=== PATIENT | female | born 1955 | race Caucasian/White ===

== ENCOUNTER 2020-07-18 08:27 | Outpatient (CLI) | payer BC ==
[~2020-07-18] VITALS: Ht 152.4 cm; Wt 93.7 kg
[2020-07-18 09:00] VITALS: BP 125/64; PULSE 64; TEMP 97.5
[2020-07-18] MEDS ORDERED: PREVACID 30MG30 M1 PO (14:35)
[2020-07-18] MEDS ORDERED: IMODIUM 2MG CAPS2 MG PO (14:35)
[2020-07-18] MEDS ORDERED: SUDAFED60 MG PO (14:36)
[2020-07-18] MEDS ORDERED: CLARITIN 1010 MG/TAB PO (14:36)
[2020-07-18] MEDS ORDERED: PEPCID40 MG PO (14:36)
[2020-07-18] MEDS ORDERED: MOTRIN 200200 MG/TAB PO (14:37)
[2020-07-18] MEDS ORDERED: TYLENOL 500MG500 MG PO (14:37)
[2020-07-18] MEDS ORDERED: TRIAMCINOLONE A15 GM TP (14:38)
== END 2020-07-18 14:38 | disposition home or self-care (01) ==
LOC: EUO 08:27
DX: Z51.11 Encounter for antineoplastic chemotherapy (principal); C54.1 Malignant neoplasm of endometrium; Z95.9 Presence of cardiac and vascular implant and graft, unspecified